=== PATIENT | male | born 1955 | race African-American/Black ===

== ENCOUNTER 2017-10-28 15:49 | Emergency (ER) | payer MEDICARE ==
[~2017-10-28] VITALS: Ht 170.2 cm; Wt 77.3 kg
[~2017-10-28 15:49] MED LIST: HYDR-3965 PO; IBUP-2071 PO; NOCURR
[2017-10-28 15:52] VITALS: BP 108/72
== END 2017-10-28 16:46 | disposition left against medical advice (07) ==
LOC: EMS 15:50
DX: Z53.21 Procedure and treatment not carried out due to patient leaving prior to being seen by health care provider (principal)

== ENCOUNTER 2018-12-05 10:34 | Emergency (ER) | payer MEDICARE, MEDICAID ==
[~2018-12-05] VITALS: Ht 170.2 cm; Wt 75.0 kg
[2018-12-05] MEDS ORDERED: HYDROCODONE/ACETAMINOPHEN 5-325 MG TABLET PO ONE (11:15)
[2018-12-05] MEDS ORDERED: IBUPROFEN 800 MG TABLET PO ONE (11:15)
[2018-12-05 13:41] VITALS: BP 160/84
== END 2018-12-05 15:11 | disposition home or self-care (01) ==
LOC: EMS 10:34
DX: S52.602A Unspecified fracture of lower end of left ulna, initial encounter for closed fracture (principal); Z87.891 Personal history of nicotine dependence; W50.0XXA Accidental hit or strike by another person, initial encounter; Y93.89 Activity, other specified; Y92.89 Other specified places as the place of occurrence of the external cause; Y99.8 Other external cause status

== ENCOUNTER 2018-12-13 16:22 | Emergency (ER) | payer MEDICARE, MEDICAID ==
[~2018-12-13] VITALS: Ht 170.2 cm; Wt 75.0 kg
[2018-12-13] MEDS ORDERED: KETOROLAC TROMETHAMINE 30 MG/ML VIAL IM ONE (17:30)
[2018-12-13 17:49] VITALS: BP 150/110
== END 2018-12-13 18:37 | disposition home or self-care (01) ==
LOC: EMS 16:23
DX: S52.202A Unspecified fracture of shaft of left ulna, initial encounter for closed fracture (principal); F17.210 Nicotine dependence, cigarettes, uncomplicated; W22.8XXA Striking against or struck by other objects, initial encounter; Y93.89 Activity, other specified; Y92.89 Other specified places as the place of occurrence of the external cause; Y99.8 Other external cause status
CPT/HCPCS: 29125; 96372; 99283; J1885